=== PATIENT | male | born 1990 | race Caucasian/White ===

== ENCOUNTER 2023-10-08 16:44 | Emergency (ER) | payer SELFPAY ==
[~2023-10-08] VITALS: Ht 170.2 cm; Wt 81.8 kg
[~2023-10-08 16:44] MED LIST: BACTRIM DS 8001 TAB PO; CEPHALEXIN500 M1 PO; CIPRO 500MG TA500 MG PO; NO HOME MEDICATIONS; ZOFRAN 4MG T4 MG/TAB PO
[2023-10-08 16:47] VITALS: BP 122/66; TEMP 98.4
[2023-10-08] MEDS ORDERED: CEPHALEXIN500 M1 PO (19:06)
[2023-10-08] MEDS ORDERED: NORCO 325 MG-51 TAB PO (19:08)
[2023-10-08 19:31] VITALS: PULSE 81
== END 2023-10-08 19:53 | disposition home or self-care (01) ==
LOC: COL.ER 16:44
DX: S51.812A Laceration without foreign body of left forearm, initial encounter (principal); Z23 Encounter for immunization; W20.8XXA Other cause of strike by thrown, projected or falling object, initial encounter; Y92.59 Other trade areas as the place of occurrence of the external cause